=== PATIENT | female | born 2005 | race Caucasian/White ===

== ENCOUNTER 2024-09-25 09:55 | Day surgery (SDC) | payer OTHER, SELFPAY ==
[2024-09-16 15:17] VITALS: BMI 22.0
[2024-09-25] VITALS (9 sets, daily range): BP systolic 92–121; BP diastolic 56–79; PULSE 66–96; RESP 10–21; TEMP 36.4–36.7; O2SAT 96–100; BMI 22.0
--- NOTE | 2024-09-25 11:20 | PM.PREOP ---
Pre-operative Note Interval Note History & Physical reviewed/Exam performed by Physician: Yes Changes to H&P: No
--- NOTE | 2024-09-25 11:20 | PM.HP.1 ---
History of Present Illness History of Present Illness Date Patient Seen: 09/25/24 Time Patient Seen: 11:20 Chief complaint: Tonsillectomy & possible adenoidectomy Narrative: 19-year-old female last seen in clinic 08/04/2024 presents for scheduled tonsillectomy and possible adenoidectomy. She deals with recurrent acute tonsillitis, thinks her last episode of possible ulcer near the right tonsil was precipitated by spice exposure, resolved slowly, would resolve faster in the past with antibiotics. She remains a loud snore, no other health changes, wishes to proceed. [facility] Medical History Respiratory obstruction Tonsillar hypertrophy Chronic tonsillitis Throat pain Witnessed episode of apnea Surgical History History of esophageal surgery (05/21/04) Social History household members: family Smoking Status: Never smoker alcohol intake: never Meds Home Medications and Allergies Home Medications Medication Instructions Recorded Confirmed Type No Known Home Medications 09/25/24 09/25/24 History Allergies Allergy/AdvReac Type Severity Reaction Status Date / Time lactose Allergy Verified 09/25/24 11:19 milk Allergy Verified 09/25/24 11:19 Review of Systems Review of Systems Narrative: Negative except as listed in the HPI Exam Vital Signs (past 8 hours): - 09/25/24 10:44 Temperature 97.7 F Pulse Rate 92 H Respiratory Rate 18 Blood Pressure 121/79 Pulse Oximetry 100 Oxygen Delivery Method Room Air Oxygen Delivery Method Room Air Narrative Exam Narrative: Well-developed well-nourished, heart regular rate and rhythm without murmur, lungs clear to auscultation bilaterally Assessment & Plan Assessment & Plan narrative: Assessment: Recurrent acute tonsillitis, chronic tonsillitis, throat pain, tonsillar hypertrophy, upper airway obstruction, possible adenoid hypertrophy Plan: Following discussion of the material risks benefits complications and alternatives, the patient elected to proceed. Time-Based Coding :: [TOTAL MINUTES] spent with patient and on the chart (including review of chart, obtaining history, exam, reviewing outside data, placing orders, documenting exam and treatment plan, and counseling patient) on [DATE].
[2024-09-25] MEDS: LACTATED RINGERS 1,000 ML 42 ML IV ×2 (11:22→12:45)
[2024-09-25] MEDS: SCOPOLAMINE 1 PATCH TOP (11:22)
[2024-09-25] MEDS: ACETAMINOPHEN IV 1,000 MG/100 ML VIAL 400 MG IV (11:22)
--- NOTE | 2024-09-25 11:22 | PM.OP.1 ---
Operative Date/Time/Diagnoses Date of procedure: 09/25/24 Time of procedure: 12:21 Pre-op diagnosis: Recurrent acute tonsillitis, chronic tonsillitis, throat pain, upper airway obstruction secondary to tonsillar, possible adenoid hypertrophy Post-op diagnosis: same Procedure & Clinicians Procedure: Tonsillectomy and adenoidectomy Same procedure as scheduled: Yes Indications: 19 Year old with the above diagnoses incompletely managed with medical therapy presents for the above procedure. Following discussion of the material risks benefits complications and alternatives, the patient elected to proceed. Surgeon: Domenico Whitehead Click Yes if Unassisted: Yes Anesthesia Type: General and Local Operative Notes Findings: Intact palate, single uvula, 3 to 4+ inflamed and scarred tonsils, 2+ adenoids Estimated Blood Loss (mL): 15 Procedure in detail: Following identification and confirmation of consent the patient was brought to the operating room suite and placed in the supine position. General endotracheal anesthesia was administered. A head wrap, shoulder roll, and mouth gag were placed and a red rubber catheter was inserted through the nostril and out the mouth to retract the soft palate. Partially obstructive adenoid tissue was ablated with suction electrocautery on a setting of 40, without injury to the eustachian tube orifices or choana. The left tonsil was retracted medially and suction electrocautery on a setting of 30 was used to dissect the tonsil in a subcapsular plane, followed by hemostasis with the same. This process was repeated on the right side with identical findings. The tonsillar fossae were superficially infiltrated bilaterally with 1% lidocaine 1 100,000 epinephrine. Mouth gag and rubber catheter were removed and the patient was extubated in the operating room and taken to the recovery room in stable condition without known complication. Complications: none Post-operative Condition: stable Disposition: same day surgery Plan for aftercare: Push fluids, alternate Tylenol and Advil every 3 hours for baseline pain control, oxycodone for breakthrough pain. Soft diet 2 full weeks, no heavy lifting or straining 2 weeks.
--- NOTE | 2024-09-25 11:55 | SUR.OPER ---
Supine on padded OR bed, head on gel pad, arms tucked with blanket at sides, legs uncrossed, safety belt at thigh, tape over blanket over lower legs.
[2024-09-25] MEDS: LIDOCAINE 1% W/EPI 20ML 20 ML INJ (11:59)
[2024-09-25] MEDS: ONDANSETRON 4 MG/2 ML INJ IV ×2 (12:43→12:56)
[2024-09-25] MEDS: LORazepam 2 MG/ML INJ 0.5 MG IV (13:00)
== END 2024-09-25 14:29 | disposition home or self-care (01) ==
PROVIDERS: Referring Provider Otolaryngology; Visit Provider Otolaryngology
PROC: (CPT 42821; principal; 2024-09-25 11:30)
DX: J03.90 Acute tonsillitis, unspecified (principal); J35.01 Chronic tonsillitis; J98.8 Other specified respiratory disorders
CPT/HCPCS: 42821; 81025; J0131; J1100; J1171; J2060; J2250; J2405; J2704; J3010